=== PATIENT | female | born 1995 | race Hispanic/Latino ===

== ENCOUNTER 2018-09-02 22:34 | Emergency (ER) | payer BC ==
[2018-09-03] MEDS ORDERED: Azithromycin 250 MG TAB ONE ×2 (00:46→00:49)
[2018-09-03] MEDS ORDERED: Lidocaine 1% PF 5 ML VIAL ONE (00:46)
[2018-09-03] MEDS ORDERED: cefTRIAXone\\ROCEPHIN 250 MG VIAL ONE (00:46)
[2018-09-03 01:05] LABS: Bilirubin Negative (Negative); Blood, Urine Negative (Negative); Clarity CLOUDY (Clear); Glucose, Urine (Dipstick) Negative (Negative); Leukocyte Small (Negative); Nitrite Negative (Negative); Pregnancy Test - Urine (BHCG) Negative (Negative); Pregu Control Background? CLEAR/WHITE (CLR/WHITE); Pregu Control Bar Appear? YES (CONTROL BAR); Protein, Urine (Dipstick) Negative (Neg-Trace); Specific Gravity 1.025 (1.002-1.036); Specific Gravity, Urine 1.025 (1.002-1.036); Urobilinogen 0.2 mg/dL (0.2-1.0)
[2018-09-03 01:08] LABS: Bacteria/HPF None Seen HPF (None Seen); Hyaline Casts/LPF 0-3 HYALINE CAST LPF (0-3 Hyaline); Pathc Cast-AUWi Flag 0.58 (0-2.49); Squamous Epithelial 0-3 HPF (0-3); WBC/HPF 0-3 HPF (0-3)
[2018-09-04 19:43] LABS: Chlamydia by PCR Not Detected (NotDetected); GC by PCR Not Detected (NotDetected)
== END 2018-09-03 01:18 | disposition home or self-care (01) ==
LOC: ERS 22:34
DX: N72 Inflammatory disease of cervix uteri (principal); R59.9 Enlarged lymph nodes, unspecified
CPT/HCPCS: 81003; 81015; 81025; 87086; 87480; 87491; 87510; 87591; 87660; 96372; J0696; J2001

== ENCOUNTER 2018-10-28 01:27 | Emergency (ER) | payer BC ==
[2018-10-28 01:59] LABS: Bilirubin Negative (Negative); Blood, Urine Negative (Negative); Clarity CLOUDY (Clear); Glucose, Urine (Dipstick) Negative (Negative); Leukocyte Trace (Negative); Nitrite Negative (Negative); Pregnancy Test - Urine (BHCG) Negative (Negative); Pregu Control Background? CLEAR/WHITE (CLR/WHITE); Pregu Control Bar Appear? YES (CONTROL BAR); Protein, Urine (Dipstick) Negative (Neg-Trace); Specific Gravity 1.026 (1.002-1.036); Specific Gravity, Urine 1.026 (1.002-1.036); Urobilinogen 0.2 mg/dL (0.2-1.0)
[2018-10-28 02:01] LABS: Bacteria/HPF None Seen HPF (None Seen); Hyaline Casts/LPF 0-3 HYALINE CAST LPF (0-3 Hyaline); Squamous Epithelial 0-3 HPF (0-3); WBC/HPF 0-3 HPF (0-3)
[2018-10-28 02:04] LABS: #Eosinphils 0.1 thou/uL (0.0-0.7); #Lymphocytes 2.1 thou/uL (1.20-3.40); #Monocytes 0.6 thou/uL (0.11-0.59); #Neutrophils 6.9 thou/uL (1.40-6.50); %Basophils 0.3 % (0.0-1.0); %Eosinophils 0.6 % (0.0-10.0); %Lymphocytes 21.9 % (21.0-51.0); %Monocytes 6.4 % (0.0-10.0); %Neutrophils 70.9 % (42.0-75.0); Hemoglobin 11.8 g/dL (12.0-16.0); Mean Corpuscular HGB CONC 33.5 g/dL (32.0-36.0); Mean Corpuscular Hemoglobin 26.2 pg (27.0-31.0); Mean Corpuscular Volume 78.3 fL (78.0-98.0); Mean Platelet Volume 8.3 fL (7.4-10.4); Platelet Count 282 thou/uL (130-400); RBC Distribution Width 13.2 % (11.5-14.5); White Blood Cell (WBC) Count 9.7 thou/uL (4.8-10.8)
[2018-10-28 02:35] LABS: ALT (SGPT) 30 U/L (8-55); AST (SGOT) 26 U/L (5-34); Albumin 4.7 g/dL (3.5-5.0); Alkaline Phosphatase 75 U/L (40-150); Anion Gap 12 mmol/L (10-20); BUN (Urea Nitrogen) 14 mg/dL (7.0-18.7); Bilirubin, Total 0.2 mg/dL (0.2-1.2); Calc. Creatinine Clearance 0 mL/min (70-130); Calcium 10.1 mg/dL (7.8-10.44); Carbon Dioxide 26 mmol/L (22-29); Chloride 105 mmol/L (98-107); Estimated GFR-MDRD Greater than 90; Glucose 102 mg/dL (70-105); Lipase 18 U/L (8-78); Protein, Total 7.7 g/dL (6.0-8.3); Sodium 139 mmol/L (136-145)
[2018-10-28] MEDS ORDERED: Ketorolac Tromethamine 60 MG/2 ML VIAL ONE (03:12)
[2018-10-28] MEDS ORDERED: Morphine 4 MG/ML VIAL ONE (05:05)
[2018-10-28] MEDS ORDERED: Ondansetron PF 4 MG/2 ML Vial ONE (05:05)
--- NOTE | 2018-10-28 08:13 | ULT ---
TRANSABDOMINAL PELVIC ULTRASOUND: DATE: 10/28/2018. HISTORY: Pelvic pain. FINDINGS: The uterus demonstrates a normal sonographic appearance with transabdominal imaging measuring 10.1 cm x 5 cm x 5.3 cm. The endometrial stripe measures 0.5 cm in thickness. No fluid or fluid collection is seen in the endometrial canal. The ovaries demonstrate a normal sonographic appearance bilaterally with the right ovary measuring 2. 6 cm x 3.2 cm x 2.2 cm. The left ovary measures 3.4 cm x 1.6 cm x 2.1 cm. Doppler evaluation of each ovary with spectral analysis and color flow evaluation suggests arterial f low in each ovary. There is a small follicle seen within each ovary. Previously described tubular c ystic structure in the left adnexa on recent CT scan is not identified on transabdominal imaging. Th e patient refused endovaginal imaging for further evaluation. No free fluid is seen in the cul-de-sac. IMPRESSION: 1. Normal-appearing uterus and bilateral ovaries. 2. The tubular cystic structure seen on CT examination performed just prior to this examination is n ot visualized on transabdominal sonographic images. The patient refused endovaginal imaging for furt her evaluation. POS: [facility]
--- NOTE | 2018-10-28 09:57 | CT ---
PRELIMINARY REPORT/[facility]/EMERGENTY AFTER-HOURS PROCEDURE CT Abdomen and Pelvis With Contrast EXAM DATE/TIME: 10/28/2018 5:29 AM CLINICAL HISTORY: 23 years old, female; Pain; Abdominal pain; Localized; Lower; Patient HX: Er 6; 23 yo f presents to e d with C/O abdominal pain. PT reports intermittent lower abd pain that started yesterday around 4:30- 5 pm, associated with decreased apetite, constipation, and some dysuria. PT reports her lmp was normal in mid-september. TECHNIQUE: Axial computed tomography images of the abdomen and pelvis with intravenous contrast. Coronal reformatted images were created and reviewed. COMPARISON: No relevant prior studies available. FINDINGS: Lower thorax: The visualized portions of the lung bases are normal. There is asymmetric increased den sity within the RIGHT breast likely due to patient positioning. ABDOMEN: Liver: There are no focal liver lesions identified. Gallbladder and bile ducts: The gallbladder is normal. There is no evidence of biliary ductal dilatio n. Pancreas: The pancreas appears normal. No ductal dilatation. Spleen: The spleen is normal. Adrenals: The adrenal glands are normal. Kidneys and ureters: The kidneys appear normal. No hydronephrosis. Stomach and bowel: The stomach is normal. The duodenum is unremarkable. The colon is normal. Appendix: A normal appendix is identified. PELVIS: Bladder: The bladder is normal. Reproductive: There is indeterminate cyst in the RIGHT ovary, incompletely evaluated with CT. There i s tubular structure in the LEFT adnexa possibly representing hydrosalpinx. The uterus is normal. ABDOMEN and PELVIS: Intraperitoneal space: Normal. No free air. No significant fluid collection. Bones/joints: No acute fracture. No dislocation. Soft tissues: Unremarkable. Vasculature: Normal. No abdominal aortic aneurysm. Lymph nodes: Normal. No enlarged lymph nodes. IMPRESSION: There is tubular structure in the LEFT adnexa possibly representing hydrosalpinx. Consider pelvic ult rasound for further evaluation. Thank you for allowing us to participate in the care of your patient. Dictated and Authenticated by: Manny Greene MD 10/28/2018 6:57 AM Central Time ([place] & [place]) FINAL REPORT EMERGENT AFTER HOURS CT ABDOMEN AND PELVIS WITH IV CONTRAST: DATE: 10/28/2018. HISTORY: Intermittent lower abdominal pain hat started 1 day ago. COMPARISON: 02/07/2015. IMPRESSION: 1. Low-density structures within the right ovary likely related to ovarian follicles. There is a hy podense cystic-appearing structure seen in the left adnexal region which does abut the left ovary and is seen just posterior to the left ovary measuring approximately 30 mm x 14 mm. This could possibly represent either a paraovarian cyst or partial dilatation of fallopian tube related to hydrosalpinx. There was a cystic lesion seen in the left adnexa on prior study in 2014 which is not appreciated o n this exam. 2. There are, otherwise, no acute findings seen within the abdomen or pelvis. 3. Findings are in agreement with the preliminary report by [facility]. Pelvic ultrasound was suggested on preliminary report. POS: [facility]
== END 2018-10-28 09:30 | disposition home or self-care (01) ==
LOC: ERS 01:27
DX: N83.202 Unspecified ovarian cyst, left side (principal)
CPT/HCPCS: 36415; 74177; 76856; 80053; 81003; 81015; 81025; 83690; 85025; 96372; J1885; J2270; J2405